=== PATIENT | male | born 1970 | race Caucasian/White ===

== ENCOUNTER 2016-04-25 09:31 | Emergency (ER) | payer OTHER ==
[2016-04-25 09:44] VITALS: BP 98/59; PULSE 66; RESP 18; TEMP 97.7; O2SAT 94
[2016-04-25] MEDS ORDERED: IBUPROFEN 200 MG TAB PO ONE (09:54)
--- NOTE | 2016-04-25 10:12 | UCPHY ---
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 He explains that the wrestler landed on top of his foot while it was flexed dorsally. He thinks there is also an inversion to the foot. He had immediate pain and since that time he has had moderate achy pain at baseline becomes sharp and severe with any attempt to bear weight. He came in crutches due to his inability to bear weight on the foot. He has no other associated symptoms. ROS: No numbness or tingling. No other injuries. 5 point ROS is otherwise negative Past Medical/Surgical History: Otherwise healthy Smoking Status: Never smoked Physical Exam: Physical Exam Vital signs are normal. General: No acute distress Eyes: Pupils equal and react to light. Extraocular motions are intact. Cardiac: Brisk capillary refill is intact throughout. Pulses are 2+ and symmetric in the affected extremity. Skin: No rash or pallor. Extremities: Atraumatic and normal except for the left foot exam. That exam is notable for mild lateral swelling to the midfoot with associated tenderness. There is no ecchymosis. There is no associated ankle swelling or tenderness. No 5th metatarsal tenderness or swelling. Neuro: Alert Initial differential diagnosis: Foot sprain, foot fracture Constitutional: Initial Vital Signs Temperature (C) 36.5 C 04/25/16 09:42 Heart Rate 66 04/25/16 09:42 Respiratory Rate 18 04/25/16 09:42 Blood Pressure 98/59 L 04/25/16 09:42 O2 Sat (%) 94 04/25/16 09:42 O2 Delivery Mode Room Air Allergies/Adverse Reactions: aspirin Allergy (Intermediate, Verified 04/25/16 09:40) Wheezing Home Medications: Medication Instructions Recorded Rhinocort Allergy 04/25/16 MDM/Departure - MDM Diagnostics: Foot x-ray: I appreciate no evidence of fracture. Medications Given: Discontinued Medications Ibuprofen (Motrin) 600 mg PO EDNOW ONE Stop: 04/25/16 09:55 Last Admin: 04/25/16 10:10 Dose: 600 mg ED Course/Re-evaluation: Patient is placed in a postop shoe I counseled him regarding foot sprain. He will follow up with Podiatry for any ongoing symptoms despite the treatment plan - Depart Disposition: Home, Routine, Self-Care Clinical Impression: Foot sprain Qualifiers: Encounter type: initial encounter Laterality: left Qualifier Code: (S93.602A) Unspecified sprain of left foot, initial encounter Condition: Good Instructions: Foot Sprain (ED) Additional Instructions: Diagnosis: Foot sprain Plan: Postop shoe whenever up and about Crutches until it is no longer painful to bear weight. Follow up with the laboratory specialist if her symptoms are not improving over the next 5-10 days with treatment plan. Limit her activity until symptoms improve. Return for any significant worsening despite treatment plan Referrals: Adams West MD [Primary Care Provider] - As per Instructions Pat Metcalf [Doctor of Podiatric Medicine] - As per Instructions - PQRS PQRS Measurement: NA
--- NOTE | 2016-04-25 10:20 | DX ---
Left Foot 3 views HISTORY: Pain after trauma. FINDINGS: No fracture or dislocation. Joint spaces are normal. Moderate bunion of first metatarsal he ad is accompanied by some soft tissue swelling. Metatarsus varus and hallux valgus are mild. IMPRESSION: 1. No acute traumatic sequelae. 2. Hallux valgus and bunion at the first metatarsal head.
== END 2016-04-25 10:42 | disposition home or self-care (01) ==
LOC: CED 09:31
DX: S93.602A Unspecified sprain of left foot, initial encounter (principal); M20.12 Hallux valgus (acquired), left foot; W50.0XXA Accidental hit or strike by another person, initial encounter
CPT/HCPCS: 73630-PO; 99214-PO; G0463-PO